=== PATIENT | female | born 1975 | race Hispanic/Latino ===

== ENCOUNTER 2016-11-18 12:55 | Emergency (ER) | payer BC, OTHER ==
[2016-11-18 12:56] VITALS: BMI 20.3
--- NOTE | 2016-11-18 13:33 | ED PDOC ---
Arrival/HPI <Nawaf Stapleton - Last Filed: 11/18/16 14:34> - General Historian: Patient - History of Present Illness Time/Duration: Prior to Arrival Symptom Onset: Sudden Symptom Course: Improving Context: Home <Keeley Marquez - Last Filed: 11/18/16 15:59> - General Chief Complaint: Chest Pain Time Seen by Provider: 11/18/16 13:16 - History of Present Illness Narrative History of Present Illness (Text): 11/18/16 13:43 41 yo female with PMH with endometriosis presented with right sided rib pain. Patient states she was going to take a step when she felt sharp pain with popping feeling. Initially pain was 10/10 but improved with rest. Patient states that movement and taking deep breaths makes the pain worse. Pain does not radiated. Patient also has right sided chest pain for the past few months. She describes that pain as burning worse when laying on her right side or with movement. Patient states she saw her PMD and had a CXR which was normal. She denies fever, chills, sob, abd pain. PMD: Dr. Ruiz (Keeley Marquez) Past Medical History - Provider Review Nursing Documentation Reviewed: Yes - Infectious Disease Hx of Infectious Diseases: None - Tetanus Immunization Tetanus Immunization: Unknown - Past Medical History Past Medical History: No Previous - Cardiac Hx Pacemaker: No - Pulmonary Hx Respiratory Disorders: No - Neurological Hx Neurological Disorder: No Hx Paralysis: No - HEENT Hx HEENT Disorder: No - Renal Hx Renal Disorder: No - Endocrine/Metabolic Hx Endocrine Disorders: Yes Other/Comment: pituitary tumor - Hematological/Oncological Hx Blood Disorders: No Hx Blood Transfusions: No - Integumentary Hx Dermatological Disorder: No - Musculoskeletal/Rheumatological Hx Musculoskeletal Disorders: No - Gastrointestinal Hx Gastrointestinal Disorders: Yes Hx Constipation: Yes Hx Gastroesophageal Reflux: Yes - Genitourinary/Gynecological Hx Genitourinary Disorders: Yes Other/Comment: Endometriosis, ovarian mass - Psychiatric Hx Depression: Yes Hx Substance Use: No - Past Surgical History Past Surgical History: No Previous - Surgical History Other/Comment: endometriosis; rhinoplasty, ovarian mass removed - Anesthesia Hx Anesthesia Reactions: No Hx Malignant Hyperthermia: No - Suicidal Assessment Feels Threatened In Home Enviroment: No <Keeley Marquez - Last Filed: 11/18/16 15:59> Family/Social History - Physician Review Nursing Documentation Reviewed: Yes Family/Social History: Neoplasm/Cancer (father- lung ca) Smoking Status: Current Some Days Smoker Hx Alcohol Use: No Hx Substance Use: No Hx Substance Use Treatment: No <Keeley Marquez - Last Filed: 11/18/16 15:59> Allergies/Home Meds <Nawaf Stapleton - Last Filed: 11/18/16 14:34> <Keeley Marquez - Last Filed: 11/18/16 15:59> Allergies/Adverse Reactions: Allergies morphine Allergy (Verified 11/18/16 13:16) SHORTNESS OF BREATH Home Medications: Home Meds Medication Instructions Recorded Confirmed Dexlansoprazole [Dexilant] 60 mg PO PRN PRN 08/11/15 11/18/16 Review of Systems - Review of Systems Constitutional: Normal. absent: Fatigue, Fevers Eyes: Normal. absent: Vision Changes ENT: Normal. absent: Hearing Changes, Sore Throat, Rhinorrhea, Sinus Congestion Respiratory: Normal. absent: SOB, Cough, Wheezing Cardiovascular: Normal, Chest Pain. absent: Palpitations, Edema, Calf Pain, Syncope Gastrointestinal: Normal. absent: Abdominal Pain, Constipation, Diarrhea, Nausea, Vomiting Genitourinary Female: Normal. absent: Dysuria, Frequency, Hematuria Musculoskeletal: Back Pain, Myalgias. absent: Arthralgias, Joint Swelling Skin: Normal. absent: Rash, Laceration, Ulcer Neurological: Normal. absent: Headache, Dizziness Endocrine: Normal. absent: Diaphoresis Hemo/Lymphatic: Normal. absent: Easy Bleeding, Easy Bruising Psychiatric: Anxiety. absent: Depression <Keeley Marquez - Last Filed: 11/18/16 15:59> Physical Exam - Systems Exam Head: Present: Atraumatic, Normocephalic Pupils: Present: PERRL. No: Non-Reactive, Pinpoint Extroacular Muscles: Present: EOMI. No: Gaze Palsy, Entrapment Conjunctiva: Present: Normal Mouth: Present: Moist Mucous Membranes Neck: Present: Normal Range of Motion. No: MIDLINE TENDERNESS Respiratory/Chest: Present: Clear to Auscultation, Good Air Exchange, Tender to Palpation (right side). No: Respiratory Distress, Accessory Muscle Use, Wheezes , Rales, Rhonchi, Tachypneic Cardiovascular: Present: Regular Rate and Rhythm, Normal S1, S2. No: Murmurs, Tachycardic, Bradycardic Abdomen: Present: Normal Bowel Sounds. No: Tenderness, Distention, Peritoneal Signs Back: Present: Normal Inspection, Other (tenderness with palpitation of right side lower ribs). No: CVA Tenderness, Midline Tenderness Upper Extremity: Present: Normal Inspection, NORMAL PULSES. No: Cyanosis, Edema , Tenderness, Swelling Lower Extremity: Present: Normal Inspection, NORMAL PULSES. No: Edema, CALF TENDERNESS Neurological: Present: GCS=15, CN II-XII Intact, Speech Normal Skin: Present: Warm, Dry, Normal Color. No: Rashes Psychiatric: Present: Alert, Oriented x 3, Normal Insight, Normal Concentration , Anxious <Keeley Marquez - Last Filed: 11/18/16 15:59> Vital Signs Temp Pulse Resp BP Pulse Ox 11/18/16 15:00 98 F 76 18 118/73 98 11/18/16 13:20 98.1 F 70 18 120/79 99 Medical Decision Making <Nawaf Stapleton - Last Filed: 11/18/16 14:34> <Keeley Marquez - Last Filed: 11/18/16 15:59> ED Course and Treatment: Patient seen and examined with resident. Came up with treatment and disposition plan with resident. The patient is a 41 year old female who presents to the emergency department for evaluation of right sided rib pain. Additional HPI details as noted by resident. Physical examination the patient has no acute findings. Rib x-ray ordered to rule out fracture vs sprain. Patient given Flexeril and Toradol for discomfort. (Nawaf Stapleton) 11/18/16 13:39 impression: 41 yo female with PMH of endometriosis present with pain right sided rib pain. differential diagnoses includes but not limited to: - muscle strain Plan: - rib, AP xray - pain management - EKG 11/18/16 15:25 - Xray of right rib and PA chest was unremarkable, no right rib fracture. EKG was NSR, no ST changes. Patient states that she is feeling better. Discharge plan was discussed with patient, she is to follow up with PMD in 1-2 days. ( Keeley Marquez) - RAD Interpretation Radiology Orders: 11/18/16 13:51 RIBS RIGHT & PA CHEST [RAD] Stat - EKG Interpretation EKG Interpretation (Text): 11/18/16 14:30 Rate 62 bpm NSR, no ST changes (Keeley Marquez) - Medication Orders Current Medication Orders: Discontinued Medications Cyclobenzaprine HCl (Flexeril) 10 mg PO STAT STA Stop: 11/18/16 13:51 Last Admin: 11/18/16 14:22 Dose: 10 mg Ketorolac Tromethamine (Toradol) 60 mg IM STAT STA Stop: 11/18/16 13:53 Last Admin: 11/18/16 14:22 Dose: 60 mg - PA / DIRECTOR OF RESIDENTIAL SERVICES / Resident Statement MD/DO has reviewed & agrees with the documentation as recorded. MD/DO has examined the patient and agrees with the treatment plan. - Scribe Statement The provider has reviewed the documentation as recorded by the Scribe <Nawaf Stapleton - Last Filed: 11/18/16 14:34> <Keeley Marquez - Last Filed: 11/18/16 15:59> - Scribe Statement Peyman Carreno Provider Scribe Attestation: All medical record entries made by the Scribe were at my direction and personally dictated by me. I have reviewed the chart and agree that the record accurately reflects my personal performance of the history, physical exam, medical decision making, and the department course for this patient. I have also personally directed, reviewed, and agree with the discharge instructions and disposition. (Nawaf Stapleton) Disposition/Present on Arrival <Nawaf Stapleton - Last Filed: 11/18/16 14:34> - Present on Arrival Any Indicators Present on Arrival: No History of DVT/PE: No History of Uncontrolled Diabetes: No Urinary Catheter: No History of Decub. Ulcer: No History Surgical Site Infection Following: None - Disposition Have Diagnosis and Disposition been Completed?: Yes Disposition Time: 03:20 Patient Plan: Discharge <Keeley Marquez - Last Filed: 11/18/16 15:59> - Disposition Diagnosis: Muscle spasm Disposition: HOME/ ROUTINE Patient Problems: Current Active Problems Problem Status Onset Muscle spasm Acute Condition: GOOD Additional Instructions: Samra Maria, thank you for letting us take care of you today. Your provider was Dr. Marquez and Dr. Stapleton. You were treated for muscle spasm. The emergency medical care you received today was directed at your acute symptoms. If you were prescribed any medication, please fill it and take as directed. It may take several days for your symptoms to resolve. Return to the Emergency Department if your symptoms worsen, do not improve, or if you have any other problems. Please contact your doctor or call one of the physicians/clinics you have been referred to that are listed on the Patient Visit Information form that is included in your discharge packet. Bring any paperwork you were given at discharge with you along with any medications you are taking to your follow up visit. Our treatment cannot replace ongoing medical care by a primary care provider (PCP) outside of the emergency department. Thank you for allowing the [facility] team to be part of your care today. Referrals: Deyvi Ruiz MD [Primary Care Provider] - Follow up with primary Forms: WORK NOTE
--- NOTE | 2016-11-18 15:21 | RAD ---
PROCEDURE: Radiographs of the Chest and Right Ribs. HISTORY: right sided rib pain COMPARISON: None available. TECHNIQUE: Frontal radiograph of the chest and multiple oblique radiographs of the right ribs were obtained. FINDINGS: RIGHT RIBS: No fracture or focal lesion visualized. LUNGS: Clear. PLEURA: No pneumothorax or pleural fluid. CARDIOVASCULAR: Normal sized heart. No pulmonary vascular congestion. OTHER FINDINGS: None. IMPRESSION: Unremarkable radiographs of the chest and right ribs. No right rib fracture.
[2016-11-18 15:51] VITALS: BP 118/73; PULSE 76; RESP 18; TEMP 98; O2SAT 98
--- NOTE | 2016-11-19 23:29 | CARD ---
APPROVED REPORT EKG Measurement Heart [id number] <Conclusion> Normal sinus rhythm Normal ECG
== END 2016-11-18 15:53 | disposition home or self-care (01) ==
LOC: ED 12:55
DX: M62.838 Other muscle spasm (principal)
CPT/HCPCS: 71101; 93005; 96372; 99283; J1885

== ENCOUNTER 2017-01-22 12:41 | Emergency (ER) | payer BC ==
[2017-01-22 12:42] VITALS: BMI 20.3
[2017-01-22 13:16] VITALS: TEMP 98.2
--- NOTE | 2017-01-22 13:42 | ED PDOC ---
Arrival/HPI - General Chief Complaint: Weakness/Neurological Deficit Time Seen by Provider: 01/22/17 13:27 Historian: Patient - History of Present Illness Narrative History of Present Illness (Text): 01/22/17 13:36 Candace Cabrales is a 41 year old female who presents to the emergency department for evaluation of stress and "not feeling well." States she has been under a lot of work related stress and started to feel "disoriented and oozy." States she has a history of anxiety and was on Xanax a year ago. Denies feeling depressed, suicidal and homicidal ideation. Denies any somatic complaints. pt states "she wants to make sure nothing else is going on ". does not request anxiolytic in er, states she "already feels better". 01/22/17 14:43 Time/Duration: Prior to Arrival Symptom Onset: Gradual Symptom Course: Improving Severity Level: Mild Activities at Onset: Light Context: Work Past Medical History - Provider Review Nursing Documentation Reviewed: Yes - Infectious Disease Hx of Infectious Diseases: None - Tetanus Immunization Tetanus Immunization: Unknown - Past Medical History Past Medical History: No Previous - Cardiac Hx Pacemaker: No - Pulmonary Hx Respiratory Disorders: No - Neurological Hx Neurological Disorder: No Hx Paralysis: No - HEENT Hx HEENT Disorder: No - Renal Hx Renal Disorder: No - Endocrine/Metabolic Hx Endocrine Disorders: Yes Other/Comment: pituitary tumor - Hematological/Oncological Hx Blood Disorders: No Hx Anemia: Yes Hx Blood Transfusions: No - Integumentary Hx Dermatological Disorder: No - Musculoskeletal/Rheumatological Hx Musculoskeletal Disorders: No - Gastrointestinal Hx Gastrointestinal Disorders: Yes Hx Constipation: Yes Hx Gastroesophageal Reflux: Yes - Genitourinary/Gynecological Hx Genitourinary Disorders: Yes Other/Comment: Endometriosis, ovarian mass - Psychiatric Hx Depression: Yes Hx Substance Use: No - Past Surgical History Past Surgical History: No Previous - Surgical History Other/Comment: endometriosis; rhinoplasty, ovarian mass removed - Anesthesia Hx Anesthesia: Yes Hx Anesthesia Reactions: No Hx Malignant Hyperthermia: No - Suicidal Assessment Feels Threatened In Home Enviroment: No Family/Social History - Physician Review Nursing Documentation Reviewed: Yes Family/Social History: No Known Family HX Smoking Status: Current Some Days Smoker Hx Alcohol Use: No Hx Substance Use: No Hx Substance Use Treatment: No Allergies/Home Meds Allergies/Adverse Reactions: Allergies morphine Allergy (Verified 11/18/16 13:16) SHORTNESS OF BREATH Home Medications: Home Meds Medication Instructions Recorded Confirmed Dexlansoprazole [Dexilant] 60 mg PO PRN PRN 08/11/15 01/22/17 Review of Systems - Physician Review All systems were reviewed & negative as marked: Yes - Review of Systems Constitutional: absent: Fatigue, Fevers Respiratory: Normal. absent: SOB, Cough, Sputum Cardiovascular: Normal. absent: Chest Pain, Palpitations Neurological: Normal. absent: Headache, Focal Weakness Psychiatric: Anxiety. absent: Depression, Suicidal Ideation Physical Exam Vital Signs Reviewed: Yes Vital Signs Temp Pulse Resp BP Pulse Ox 01/22/17 15:06 68 17 120/80 99 01/22/17 15:04 71 18 116/75 98 01/22/17 14:19 75 18 118/71 98 01/22/17 13:16 98.2 F 77 18 120/75 98 Temperature: Afebrile Blood Pressure: Normal Pulse: Regular Respiratory Rate: Normal Appearance: Positive for: Well-Appearing, Non-Toxic, Comfortable Pain Distress: None Mental Status: Positive for: Alert and Oriented X 3 - Systems Exam Head: Present: Atraumatic, Normocephalic Pupils: Present: PERRL Conjunctiva: Present: Normal Mouth: Present: Moist Mucous Membranes Respiratory/Chest: Present: Clear to Auscultation, Good Air Exchange. No: Respiratory Distress, Accessory Muscle Use Cardiovascular: Present: Regular Rate and Rhythm, Normal S1, S2. No: Murmurs Abdomen: Present: Normal Bowel Sounds. No: Tenderness, Distention, Peritoneal Signs Upper Extremity: Present: Normal Inspection. No: Cyanosis, Edema Lower Extremity: Present: Normal Inspection. No: Edema Neurological: Present: GCS=15, CN II-XII Intact, Speech Normal Skin: Present: Warm, Dry, Normal Color. No: Rashes Psychiatric: Present: Alert, Oriented x 3, Anxious Medical Decision Making ED Course and Treatment: 01/22/17 13:45 Impression: A 41 year old female who presents to the emergency department complaining of feeling anxious and disoriented. Plan: -- EKG -- Labs, cardiac enzymes -- Urinalysis -- Reassess and disposition Progress Notes: 01/22/17 13:47 01/22/17 14:44 pt noted to be sleeping in nad. no si/hi, hallucinations. pt does now wish to speak to pes worker. pt asking for d/c. as pt not si/hi/hallcinating, pt states she will see her own pychiatrist. return precautions advised - Lab Interpretations Lab Results: 01/22/17 14:06 01/22/17 14:06 Lab Results 01/22/17 14:06: Sodium 139, Potassium 4.2, Chloride 104, Carbon Dioxide 29, Anion Gap 10, BUN 13, Creatinine 0.7, Est GFR ( Amer) > 60, Est GFR (Non- Af Amer) > 60, Random Glucose 77, Calcium 9.0, Magnesium 1.7, Total Bilirubin 0.7, AST 19, ALT 31, Alkaline Phosphatase 45, Lactate Dehydrogenase 292 L, Total Creatine Kinase 45, Troponin I < 0.01, Total Protein 6.4, Albumin 4.0, Globulin 2.4, Albumin/Globulin Ratio 1.7 01/22/17 14:06: Urine Color Yellow, Urine Appearance Clear, Urine pH 6.0, Ur Specific [place] 1.025, Urine Protein Negative, Urine Glucose (UA) Negative, Urine Ketones Negative, Urine Blood Negative, Urine Nitrate Negative, Urine Bilirubin Negative, Urine Urobilinogen 0.2, Ur Leukocyte Esterase Negative 01/22/17 14:06: PT 11.4, INR 1.06, APTT 28.6 01/22/17 14:06: WBC 4.6, RBC 3.88, Hgb 12.2, Hct 36.1, MCV 93.0, MCH 31.4, MCHC 33.8, RDW 12.7, Plt Count 199, MPV 9.8, Gran % 59.2, Lymph % (Auto) 31.4, [place] % (Auto) 8.4 H, Eos % (Auto) 0.6 L, Baso % (Auto) 0.4, Gran # 2.73, Lymph # 1.5 , [place] # 0.4, Eos # 0.0, Baso # 0.02 - Scribe Statement The provider has reviewed the documentation as recorded by the Rachid Hernandez Provider Attestation: Christine Hernandez Disposition/Present on Arrival - Present on Arrival Any Indicators Present on Arrival: No History of DVT/PE: No History of Uncontrolled Diabetes: No Urinary Catheter: No History of Decub. Ulcer: No History Surgical Site Infection Following: None - Disposition Have Diagnosis and Disposition been Completed?: Yes Diagnosis: Weakness Disposition: HOME/ ROUTINE Disposition Time: 14:45 Condition: STABLE Discharge Instructions (ExitCare): Weakness (ED), Anxiety (ED) Additional Instructions: please follow up with your doctor. return to er with worsening symptoms or concerns. Referrals: Deyvi Ruiz MD [Primary Care Provider] - Follow up with primary Kavya Hoffman [Outside] - Follow up with primary [facility] [Outside] - Follow up with primary Forms: UrsulaNavut Diaz ([place]), WORK NOTE
[2017-01-22 14:20] LABS: ALB/GLOB RATIO 1.7 (1.1-1.8); ALT/SGPT 31 U/L (7-56); AST/SGOT 19 U/L (15-39); BLOOD UREA NITROGEN 13 mg/dL (7-21); GFR AFRICAN-AMERICAN > 60; GFR NON-AFRICAN AMERICAN > 60; MAGNESIUM 1.7 mg/dL (1.7-2.2)
[2017-01-22 14:23] LABS: BASO # 0.02 K/mm3 (0.0-2.0); BASO % 0.4 % (0.0-3.0); EOS % 0.6 % (1.5-5.0); GRAN # 2.73 (1.4-6.5); GRAN % 59.2 % (50.0-68.0); HEMOGLOBIN 12.2 g/dL (12.0-16.0); LYMPH # 1.5 (1.2-3.4); LYMPH % 31.4 % (22.0-35.0); MEAN CORPUSCULAR HEMOGLOBIN 31.4 pg (25.0-35.0); MEAN CORPUSCULAR HGB CONC 33.8 g/dl (31.0-37.0); MEAN PLATELET VOLUME 9.8 fl (7.0-11.0); MONO # 0.4 (0.1-0.6); MONO % 8.4 % (1.0-6.0); RBC 3.88 10^6/uL (3.5-6.1); RED CELL DISTRIBUTION WIDTH 12.7 % (11.5-14.5); URINE BILIRUBIN NEGATIVE (NEGATIVE); URINE BLOOD NEGATIVE (NEGATIVE); URINE GLUCOSE (UA) NEGATIVE (NEGATIVE); URINE LEUKOCYTE ESTERASE NEGATIVE Leu/uL (NEGATIVE); URINE NITRATE NEGATIVE (NEGATIVE); URINE PROTEIN NEGATIVE mg/dL (<30 mg/dL); URINE UROBILINOGEN 0.2 E.U./dL (<1 E.U./dL); WHITE BLOOD COUNT 4.6 10^3/ul (4.5-11.0)
[2017-01-22 14:27] LABS: URINE APPEARANCE CLEAR (CLEAR); URINE COLOR YELLOW (YELLOW)
[2017-01-22 14:29] LABS: INR 1.06 (0.93-1.08); PARTIAL THROMBOPLASTIN TIME 28.6 Seconds (23.7-30.8); PROTHROMBIN TIME 11.4 Seconds (9.9-11.8)
[2017-01-22 14:34] LABS: TROPONIN I < 0.01 ng/mL
[2017-01-22 15:06] VITALS: BP 120/80; PULSE 68; RESP 17; O2SAT 99
--- NOTE | 2017-01-22 16:25 | CARD ---
APPROVED REPORT EKG Measurement Heart [id number] <Conclusion> Sinus bradycardia Otherwise normal ECG
== END 2017-01-22 15:10 | disposition home or self-care (01) ==
LOC: ED 12:41
DX: R53.1 Weakness (principal)

== ENCOUNTER 2017-06-21 07:13 | Day surgery (SDC) | payer BC ==
[2017-06-21 07:41] VITALS: RESP 16; TEMP 98.2; O2SAT 99
[2017-06-21] MEDS ORDERED: Propofol 10 mg/ml Inj (20 ML) ONE (07:51)
[2017-06-21 07:58] LABS: INR 1.05 (0.93-1.08); PARTIAL THROMBOPLASTIN TIME 29.5 Seconds (25.1-36.5); PROTHROMBIN TIME 12.1 SECONDS (9.4-12.5)
[2017-06-21 08:01] LABS: BASO # 0.02 K/mm3 (0.0-2.0); BASO % 0.4 % (0.0-3.0); EOS # 0.1 (0.0-0.7); EOS % 2.2 % (1.5-5.0); GRAN # 1.85 (1.4-6.5); HEMOGLOBIN 12.9 g/dL (12.0-16.0); LYMPH # 2.1 (1.2-3.4); MEAN CELL VOLUME 93.9 fl (80.0-105.0); MEAN CORPUSCULAR HEMOGLOBIN 31.5 pg (25.0-35.0); MEAN CORPUSCULAR HGB CONC 33.6 g/dl (31.0-37.0); MEAN PLATELET VOLUME 10.4 fl (7.0-11.0); MONO # 0.5 (0.1-0.6); MONO % 10.4 % (1.0-6.0); RBC 4.09 10^6/uL (3.5-6.1); RED CELL DISTRIBUTION WIDTH 12.5 % (11.5-14.5); WHITE BLOOD COUNT 4.5 10^3/ul (4.5-11.0)
[2017-06-21] MEDS ORDERED: Sodium Chloride 0.9% 1,000 ML IV SCH (08:30)
[2017-06-21 09:47] VITALS: BP 100/61; PULSE 59
== END 2017-06-21 10:06 | disposition home or self-care (01) ==
LOC: ENDO 07:13
PROVIDERS: ATTEND Internal Medicine Gastroenterology
DX: K21.0 Gastro-esophageal reflux disease with esophagitis (principal); K44.9 Diaphragmatic hernia without obstruction or gangrene; K29.70 Gastritis, unspecified, without bleeding; K29.80 Duodenitis without bleeding; T18.2XXA Foreign body in stomach, initial encounter
CPT/HCPCS: 36415; 43239; 85025; 85610; 85730; 88305; 88342; J2704; J7040 ×2

== ENCOUNTER 2017-10-06 06:27 | Emergency (ER) | payer BC ==
[2017-10-06 06:27] VITALS: BMI 20.3
[2017-10-06 07:10] VITALS: BP 119/65; PULSE 57; RESP 18; TEMP 98.3; O2SAT 96
--- NOTE | 2017-10-06 07:46 | ED PDOC ---
Arrival/HPI - General Chief Complaint: Palpitations Time Seen by Provider: 10/06/17 07:45 Historian: Patient - History of Present Illness Narrative History of Present Illness (Text): 10/06/17 07:50 Patient is a 42 year old female whose medical history includes depression, peptic ulcers, and endometriosis, who presents to the Emergency department complaining of insomnia after taking Lexapro last night at approximately 21:00. Patient reports that she has started taking Lexapro for the past 5 days in the morning with mild palpitations and jitteriness. However, after taking Lexapro last night her palpitations have become more noticeable and being unable to sleep. Patient denies drinking any EtOH but admits to smoking. Of note since her depression started patient has lost 13-14lb. She denies any suicidal or homicidal ideation. Patient plans to follow up with her psychiatrist today or tomorrow. PMD:Dr.Lisa Norton Time/Duration: Other (Last night) Symptom Course: Unchanged Activities at Onset: Rest Context: Home Past Medical History - Provider Review Nursing Documentation Reviewed: Yes - Infectious Disease Hx of Infectious Diseases: None - Tetanus Immunization Tetanus Immunization: Unknown - Past Medical History Past Medical History: No Previous - Cardiac Hx Pacemaker: No - Pulmonary Hx Respiratory Disorders: No - Neurological Hx Paralysis: No - HEENT Hx HEENT Disorder: No - Renal Hx Renal Disorder: No - Endocrine/Metabolic Hx Endocrine Disorders: Yes Other/Comment: pituitary tumor - Hematological/Oncological Hx Blood Transfusions: No Hx Blood Transfusion Reaction: No - Integumentary Hx Dermatological Disorder: No - Musculoskeletal/Rheumatological Hx Musculoskeletal Disorders: No - Gastrointestinal Hx Gastrointestinal Disorders: Yes Hx Constipation: Yes Hx Gastroesophageal Reflux: Yes - Genitourinary/Gynecological Hx Genitourinary Disorders: Yes Other/Comment: Endometriosis, ovarian mass - Psychiatric Hx Emotional Abuse: No Hx Physical Abuse: No Hx Substance Use: No - Past Surgical History Past Surgical History: No Previous - Surgical History Other/Comment: endometriosis; rhinoplasty, ovarian mass removed - Anesthesia Hx Anesthesia Reactions: No Hx Malignant Hyperthermia: No - Suicidal Assessment Feels Threatened In Home Enviroment: No Family/Social History - Physician Review Nursing Documentation Reviewed: Yes Family/Social History: No Known Family HX Smoking Status: Current Some Days Smoker Hx Alcohol Use: No Hx Substance Use: No Hx Substance Use Treatment: No Allergies/Home Meds Allergies/Adverse Reactions: Allergies morphine Allergy (Verified 11/18/16 13:16) SHORTNESS OF BREATH Home Medications: Home Meds Medication Instructions Recorded Confirmed Dexlansoprazole [Dexilant] 60 mg PO PRN PRN 08/11/15 06/21/17 Famotidine/Ca Carb/Mag Hydrox 1 each PO DAILY 06/21/17 06/21/17 [Pepcid Complete Tablet Chew] Review of Systems - Physician Review All systems were reviewed & negative as marked: Yes - Review of Systems Constitutional: absent: Fevers Psychiatric: absent: Suicidal Ideation Physical Exam - Physical Exam Narrative Physical Exam (Text): 10/06/17 07:50 Constitutional: No acute distress. Head: Normocephalic. Atraumatic. Eyes: PERRL. ENT: Moist mucous membranes. Neck: Supple. Cardiovascular: Regular rate. Chest: No tenderness. Respiratory: Clear to auscultation bilaterally. GI: Soft. Nontender. Nondistended. Back: No CVA tenderness. Musculoskeletal: No tenderness or swelling of extremities. Skin: No rash. Neurologic: Alert, no focal deficit. Vital Signs Temp Pulse Resp BP Pulse Ox 10/06/17 07:09 98.3 F 57 L 18 119/65 96 Temperature: Afebrile Blood Pressure: Normal Pulse: Bradycardic Respiratory Rate: Normal Pain Distress: None Mental Status: Positive for: Alert and Oriented X 3 Medical Decision Making ED Course and Treatment: 10/06/17 07:48 Impression: Patient is a 42 year old female who is experiencing insomnia secondary to palpitations. Differential Diagnosis included but are not limited to: Medication side effect vs palpitation, r/o arrhythmia. Plan: --EKG -- Reassess and disposition Prior Visits: Notes and results from previous visits were reviewed. Progress Notes: 10/06/17 EKG shows NSR at [address]/T wave changes. Interpreted by me. 10/06/17 7:52 Reevaluation: On reevaluation the patient feels better and is in no acute distress. I have discussed the results and plan with the patient, who expresses understanding. Patient given the opportunity to ask question, all questions were answered and there is agreement with the plan to discharge the patient home. Patient is stable for discharge. Patient was instructed to follow up with physician/clinic in 1-2 days or return if symptoms persist/worsen or new concerning symptoms arise. - EKG Interpretation Interpreted by ED Physician: Yes Type: 12 lead EKG - Scribe Statement The provider has reviewed the documentation as recorded by the Scribe Emiliano Leon Provider Scribe Attestation: All medical record entries made by the Scribe were at my direction and personally dictated by me. I have reviewed the chart and agree that the record accurately reflects my personal performance of the history, physical exam, medical decision making, and the department course for this patient. I have also personally directed, reviewed, and agree with the discharge instructions and disposition. Disposition/Present on Arrival - Present on Arrival Any Indicators Present on Arrival: No History of DVT/PE: No History of Uncontrolled Diabetes: No Urinary Catheter: No History of Decub. Ulcer: No History Surgical Site Infection Following: None - Disposition Have Diagnosis and Disposition been Completed?: Yes Diagnosis: Medication side effect Disposition: HOME/ ROUTINE Disposition Time: 07:52 Patient Plan: Discharge Condition: STABLE Discharge Instructions (ExitCare): Side Effects From Medicines Referrals: Carla Moralez MD [Primary Care Provider] - Follow up with primary Forms: [employer] ([place])
--- NOTE | 2017-10-06 19:19 | CARD ---
APPROVED REPORT EKG Measurement Heart [id number] <Conclusion> Sinus bradycardia with sinus arrhythmia Otherwise normal ECG
== END 2017-10-06 08:20 | disposition home or self-care (01) ==
LOC: ED 06:27
DX: R00.2 Palpitations (principal); T43.225A Adverse effect of selective serotonin reuptake inhibitors, initial encounter; Y92.009 Unspecified place in unspecified non-institutional (private) residence as the place of occurrence of the external cause; F17.200 Nicotine dependence, unspecified, uncomplicated

== ENCOUNTER 2018-07-06 16:55 | Emergency (ER) | payer BC ==
[2018-07-06 16:56] VITALS: BMI 20.3
[2018-07-06 17:14] VITALS: RESP 18; TEMP 98.1
--- NOTE | 2018-07-06 18:27 | ED PDOC ---
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 States she slipped on ice, fell and hit the back on her head on the ground. alleged LOC. denies focal weakness, nausea, vomiting, back pain, dizziness, any other complaint. Past Medical History - Provider Review Nursing Documentation Reviewed: Yes - Infectious Disease Hx of Infectious Diseases: None - Tetanus Immunization Tetanus Immunization: Unknown - Reproductive Currently : No - Past Medical History Past Medical History: No Previous - Cardiac Hx Cardiac Disorders: No - Pulmonary Hx Respiratory Disorders: No - Neurological Hx Neurological Disorder: No - HEENT Hx HEENT Disorder: No - Renal Hx Renal Disorder: No - Endocrine/Metabolic Hx Endocrine Disorders: No - Hematological/Oncological Hx Blood Disorders: No - Integumentary Hx Dermatological Disorder: No - Musculoskeletal/Rheumatological Hx Musculoskeletal Disorders: No - Gastrointestinal Hx Gastrointestinal Disorders: Yes Hx Constipation: Yes Hx Gastroesophageal Reflux: Yes - Genitourinary/Gynecological Hx Genitourinary Disorders: Yes Other/Comment: Endometriosis, ovarian mass - Psychiatric Hx Psychophysiologic Disorder: No Hx Substance Use: No - Past Surgical History Past Surgical History: No Previous - Surgical History Other/Comment: endrometriosis; rhinoplasty, ovarian mass removed - Anesthesia Hx Anesthesia Reactions: No Hx Malignant Hyperthermia: No - Suicidal Assessment Feels Threatened In Home Enviroment: No Family/Social History - Physician Review Nursing Documentation Reviewed: Yes Family/Social History: Unknown Family HX Smoking Status: Current Some Days Smoker Hx Alcohol Use: No Hx Substance Use: No Hx Substance Use Treatment: No Allergies/Home Meds Allergies/Adverse Reactions: Allergies morphine Allergy (Verified 07/06/18 17:12) SHORTNESS OF BREATH Home Medications: Home Meds Medication Instructions Recorded Confirmed Dexlansoprazole [Dexilant] 60 mg PO PRN PRN 08/11/15 07/06/18 Escitalopram [Lexapro] 20 mg PO DAILY 07/06/18 07/06/18 Review of Systems - Physician Review All systems were reviewed & negative as marked: Yes - Review of Systems Constitutional: Normal Eyes: Normal ENT: Normal Respiratory: Normal Cardiovascular: Normal Gastrointestinal: Normal Genitourinary Female: Normal Musculoskeletal: Neck Pain Skin: Normal Neurological: Headache. absent: Dizziness, Focal Weakness, Gait Changes Endocrine: Normal Hemo/Lymphatic: Normal Psychiatric: Normal Physical Exam Vital Signs Reviewed: Yes Vital Signs Temp Pulse Resp BP Pulse Ox 07/06/18 17:12 98.1 F 65 18 123/78 99 Temperature: Afebrile Blood Pressure: Normal Pulse: Regular Respiratory Rate: Normal Appearance: Positive for: Well-Appearing, Non-Toxic, Comfortable Pain Distress: None Mental Status: Positive for: Alert and Oriented X 3 - Systems Exam Head: Present: Atraumatic, Normocephalic Pupils: Present: PERRL Extroacular Muscles: Present: EOMI Conjunctiva: Present: Normal Mouth: Present: Moist Mucous Membranes Neck: Present: MIDLINE TENDERNESS. No: Paraspinal Tenderness Respiratory/Chest: Present: Clear to Auscultation, Good Air Exchange. No: Respiratory Distress, Accessory Muscle Use Cardiovascular: Present: Regular Rate and Rhythm, Normal S1, S2. No: Murmurs Abdomen: No: Tenderness, Distention, Peritoneal Signs Back: Present: Normal Inspection Upper Extremity: Present: Normal Inspection. No: Cyanosis, Edema Lower Extremity: Present: Normal Inspection. No: Edema Neurological: Present: GCS=15, CN II-XII Intact, Speech Normal, Motor Func Grossly Intact, Normal Sensory Function, Normal Cerebellar Funct, Gait Normal, Memory Normal, Other (No focal neurological deficit) Skin: Present: Warm, Dry, Normal Color. No: Rashes Psychiatric: Present: Alert, Oriented x 3, Normal Insight, Normal Concentration Medical Decision Making ED Course and Treatment: 07/06/18 20:07 PT presented to emergency department for stated history. 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 CT of head reviewed by radiologist, shows: Dictated by: Emiliano Campbell MD Dictated Date/Time: 07/06/18 19:27 IMPRESSION: No acute intracranial abnormality. 07/06/18 20:18 Wrist brace placed - RAD Interpretation Radiology Orders: 07/06/18 17:40 HEAD W/O CONTRAST [CT] Stat 07/06/18 17:41 CERVICAL SPINE W/O CONTRAST [CT] Stat Disposition/Present on Arrival - Present on Arrival Any Indicators Present on Arrival: No History of DVT/PE: No History of Uncontrolled Diabetes: No Urinary Catheter: No History of Decub. Ulcer: No History Surgical Site Infection Following: None - Disposition Have Diagnosis and Disposition been Completed?: Yes Diagnosis: Cervical sprain, Headache, Wrist pain Disposition: HOME/ ROUTINE Disposition Time: 20:05 Patient Plan: Discharge Patient Problems: Current Active Problems Problem Status Onset Cervical sprain Acute Headache Acute Wrist pain Acute Condition: STABLE Discharge Instructions (ExitCare): Headache, Adult, Cervical Muscle Strain (DC) Additional Instructions: Follow up with your doctor/orthopedist Return to emergency department for any new or worsening symptoms Prescriptions: Cyclobenzaprine [Cyclobenzaprine HCl] 10 mg PO BID #10 tab Ibuprofen [Motrin Tab] 600 mg PO Q6 #15 tab Referrals: Teddy Rede III, MD [Medical Doctor] - Follow up with primary Forms: [employer] (Angolan)
[2018-07-06 20:21] VITALS: BP 115/63; PULSE 67; O2SAT 100
--- NOTE | 2018-07-07 08:25 | CT ---
Date of service: 07/06/2018 PROCEDURE: CT HEAD WITHOUT CONTRAST. HISTORY: s/p trauma COMPARISON: None available. TECHNIQUE: Axial computed tomography images were obtained through the head/brain without intravenous contrast. Radiation dose: Total exam DLP = 763.85 mGy-cm. This CT exam was performed using one or more of the following dose reduction techniques: Automated exposure control, adjustment of the mA and/or kV according to patient size, and/or use of iterative reconstruction technique. FINDINGS: HEMORRHAGE: No intracranial hemorrhage. BRAIN: No mass effect or edema. No atrophy or chronic microvascular ischemic changes. VENTRICLES: Unremarkable. No hydrocephalus. CALVARIUM: Unremarkable. PARANASAL SINUSES: Unremarkable as visualized. No significant inflammatory changes. MASTOID AIR CELLS: Unremarkable as visualized. No inflammatory changes. OTHER FINDINGS: None. IMPRESSION: Normal CT of the Head. No intracranial mass, hemorrhage or evidence of acute infarct. The preliminary findings for this examination were reported by [facility] at time. There is concurrence of this report with the preliminary findings.
--- NOTE | 2018-07-07 08:29 | CT ---
Date of service: 07/06/2018 PROCEDURE: CT Cervical Spine without contrast HISTORY: neck pain s/p trauma COMPARISON: None available. TECHNIQUE: Axial computed tomography images were obtained of the cervical spine without the use of intravenous contrast. Coronal and sagittal reformatted images were created and reviewed. Radiation dose: Total exam DLP = 377.3 mGy-cm. This CT exam was performed using one or more of the following dose reduction techniques: Automated exposure control, adjustment of the mA and/or kV according to patient size, and/or use of iterative reconstruction technique. FINDINGS: VERTEBRAE: Vertebral bodies are maintained in height. The atlantoaxial articulation and odontoid process are intact. There is mild straightening of the normal lordotic curvature indicating possible muscular spasm. DISCS/SPINAL CANAL/NEURAL FORAMINA: No significant central canal or neural foraminal stenosis. Discs heights are grossly preserved. PARASPINAL SOFT TISSUES: Unremarkable. OTHER FINDINGS: None. IMPRESSION: No fracture/dislocation. Possible muscular spasm. The preliminary findings for this examination were reported by [facility] at 7:34 p.m. on 07/06/2018. There is concurrence of this report with the preliminary findings.
--- NOTE | 2018-07-07 08:37 | RAD ---
Date of service: 07/06/2018 PROCEDURE: Left Wrist Radiographs. HISTORY: left wrist pain COMPARISON: None. FINDINGS: BONES: Normal. No fracture. JOINTS: Normal. No dislocation. SOFT TISSUES: Normal. OTHER FINDINGS: None. IMPRESSION: Normal left wrist radiographs.
== END 2018-07-06 20:15 | disposition home or self-care (01) ==
LOC: ED 16:55
DX: S13.4XXA Sprain of ligaments of cervical spine, initial encounter (principal); W00.0XXA Fall on same level due to ice and snow, initial encounter; M25.532 Pain in left wrist; R51 Headache

== ENCOUNTER 2018-09-30 12:53 | Emergency (ER) | payer BC ==
[2018-09-30 12:53] VITALS: BMI 20.3
--- NOTE | 2018-09-30 13:42 | ED PDOC ---
Arrival/HPI <Prince Lockwood - Last Filed: 09/30/18 14:38> - General Historian: Patient - History of Present Illness Narrative History of Present Illness (Text): 09/30/18 13:35 Patient is a 43yo F with PMH endometriosis and depression who presents to the ED with complaints of excessive sleep. She reports sleeping up to 20 hrs in a day for the past 4 months, which has caused her to miss work. She reports feeling fatigue, week, and with low energy. She claims she came in today because her boss was concerned and called EMS. Patient reports lack of interest in activities/hobbies, but denies changes in appetite or feeling like she wants to stay in bed all day. She denies fever, sweating, cold intolerance, chest pain, palpitations, nausea, vomiting, shortness of breath, abdominal pain, diarrhea, constipation. She reports intermittent tingling in random parts of her arms that resolves on its own. She also reports intermittent dizziness when getting up from sitting, as well as blurry vision. She says her eczema has been flaring which upsets her. She visits a therapist once a week, which she claims helps her. She denies any suicidal or homicidal ideations. <Marjorie Clayton - Last Filed: 09/30/18 18:03> - General Chief Complaint: Weakness/Neurological Deficit Time Seen by Provider: 09/30/18 13:08 Past Medical History - Infectious Disease Hx of Infectious Diseases: None - Tetanus Immunization Tetanus Immunization: Unknown - Past Medical History Past Medical History: No Previous - Cardiac Hx Cardiac Disorders: No - Pulmonary Hx Respiratory Disorders: No - Neurological Hx Neurological Disorder: No - HEENT Hx HEENT Disorder: No - Renal Hx Renal Disorder: No - Endocrine/Metabolic Hx Endocrine Disorders: No - Hematological/Oncological Hx Blood Disorders: No - Integumentary Hx Dermatological Disorder: No - Musculoskeletal/Rheumatological Hx Musculoskeletal Disorders: No - Gastrointestinal Hx Gastrointestinal Disorders: Yes Hx Constipation: Yes Hx Gastroesophageal Reflux: Yes - Genitourinary/Gynecological Hx Genitourinary Disorders: Yes Other/Comment: Endometriosis, ovarian mass - Psychiatric Hx Psychophysiologic Disorder: No Hx Substance Use: No - Past Surgical History Past Surgical History: No Previous - Surgical History Other/Comment: endrometriosis; rhinoplasty, ovarian mass removed - Anesthesia Hx Anesthesia Reactions: No Hx Malignant Hyperthermia: No - Suicidal Assessment Feels Threatened In Home Enviroment: No <Marjorie Clayton - Last Filed: 09/30/18 18:03> Family/Social History Family/Social History: Hypertension Smoking Status: Light Smoker < 10 Cigarettes Daily Hx Alcohol Use: No Hx Substance Use: No Hx Substance Use Treatment: No <Marjorie Clayton - Last Filed: 09/30/18 18:03> Allergies/Home Meds <Prince Lockwood - Last Filed: 09/30/18 14:38> <Marjorie Clayton - Last Filed: 09/30/18 18:03> Allergies/Adverse Reactions: Allergies morphine Allergy (Verified 09/30/18 13:01) SHORTNESS OF BREATH Home Medications: Home Meds Medication Instructions Recorded Confirmed Dexlansoprazole [Dexilant] 60 mg PO PRN PRN 08/11/15 07/06/18 Escitalopram [Lexapro] 20 mg PO DAILY 07/06/18 07/06/18 Review of Systems - Physician Review All systems were reviewed & negative as marked: Yes <Prince Lockwood - Last Filed: 09/30/18 14:38> - Review of Systems Constitutional: Fatigue. absent: Fevers Eyes: Vision Changes ENT: Normal Respiratory: Normal Cardiovascular: Normal Gastrointestinal: Normal Genitourinary Female: Normal. absent: Dysuria Musculoskeletal: Normal Skin: Normal Neurological: Dizziness Endocrine: Polyuria Hemo/Lymphatic: Normal Psychiatric: Depression. absent: Suicidal Ideation <Marjorie Clayton - Last Filed: 09/30/18 18:03> Physical Exam - Systems Exam Head: Present: Atraumatic, Normocephalic Pupils: Present: PERRL Extroacular Muscles: Present: EOMI Conjunctiva: Present: Normal Mouth: Present: Moist Mucous Membranes Neck: Present: Normal Range of Motion Respiratory/Chest: Present: Clear to Auscultation, Good Air Exchange. No: Respiratory Distress, Accessory Muscle Use Cardiovascular: Present: Regular Rate and Rhythm, Normal S1, S2. No: Murmurs Abdomen: Present: Normal Bowel Sounds. No: Tenderness, Distention, Peritoneal Signs Upper Extremity: Present: Normal Inspection, Normal ROM. No: Cyanosis, Edema Lower Extremity: Present: Normal Inspection. No: Edema, Deformity Neurological: Present: GCS=15, CN II-XII Intact, Speech Normal, Motor Func Grossly Intact, Normal Sensory Function Skin: Present: Warm, Rashes (erythematous plaques with fine scale in the periorbital region b/l), Normal Color. No: Dry Psychiatric: Present: Alert, Oriented x 3, Normal Concentration, Depressed Mood. No: Normal Insight, Suicidal Ideation, Homicidal Ideation <Marjorie Clayton - Last Filed: 09/30/18 18:03> Medical Decision Making - RAD Interpretation Radiology Orders: 09/30/18 13:42 CHEST PORTABLE [RAD] Stat <Prince Lockwood - Last Filed: 09/30/18 14:38> ED Course and Treatment: 09/30/18 13:49 - CBC, CMP, Thyroid studies - UA, UDS - serum alcohol - CXR - EKG - reassess 09/30/18 17:52 - CBC, CMP, thyroid studies without acute abnormalities - CXR no active disease - EKG sinus yanelis @53bpm - Patient not agreeable to PES at this time, prefers to be d/c home and follow up with her therapist. Had lengthy discussion regarding management of her symptoms and instructed patient to return with any worsening symptoms. Patient understood instructions and agreed. <Marjorie Clayton - Last Filed: 09/30/18 18:03> - PA / HUMAN RESOURCES TRAINING MANAGER / Resident Statement AZAEL has reviewed & agrees with the documentation as recorded. AZAEL has examined the patient and agrees with the treatment plan. <Prince Lockwood - Last Filed: 09/30/18 14:38> Disposition/Present on Arrival <Prince Lockwood - Last Filed: 09/30/18 14:38> - Present on Arrival Any Indicators Present on Arrival: No History of DVT/PE: No History of Uncontrolled Diabetes: No Urinary Catheter: No History of Decub. Ulcer: No History Surgical Site Infection Following: None - Disposition Have Diagnosis and Disposition been Completed?: Yes Disposition Time: 17:55 <Marjorie Clayton - Last Filed: 09/30/18 18:03> - Disposition Diagnosis: Depression, Hypersomnia Disposition: HOME/ ROUTINE Patient Problems: Current Active Problems Problem Status Onset Depression Acute Hypersomnia Acute Condition: STABLE Discharge Instructions (ExitCare): Depression, Adult (DC), Daytime Sleepiness Additional Instructions: Please follow up with your primary doctor within 2 days. Please follow up with your mental health counselor or the mental health clinic here at [facility]. Please follow up with Dermatology within a week. Use elidel or eucrisa to the affected areas of eczema twice a day as needed. If symptoms worsen, return to the emergency department. Prescriptions: Crisaborole [Eucrisa] 60 gm TP BID PRN #1 oint...g. PRN Reason: Rash Pimecrolimus 30 gm TP BID PRN #1 cream..g. PRN Reason: Rash Referrals: Mart Bean MD [Staff Provider] - [facility] up with [facility]] - Follow up with primary Yusuf Parker MD [Staff Provider] - Follow up with primary Jimbo Pineda [Non-Staff] - Follow up with primary Forms: [employer] (Lao)
[2018-09-30 14:56] LABS: BASO # 0.02 K/mm3 (0.0-2.0); BASO % 0.5 % (0.0-3.0); EOS # 0.1 (0.0-0.7); EOS % 1.8 % (1.5-5.0); LYMPH # 1.2 (1.2-3.4); LYMPH % 31.6 % (22.0-35.0); MEAN CELL VOLUME 94.1 fl (80.0-105.0); MEAN CORPUSCULAR HEMOGLOBIN 30.8 pg (25.0-35.0); MEAN CORPUSCULAR HGB CONC 32.8 g/dl (31.0-37.0); MEAN PLATELET VOLUME 9.7 fl (7.0-11.0); MONO # 0.3 (0.1-0.6); MONO % 8.4 % (1.0-6.0); RBC 3.89 10^6/uL (3.5-6.1); RED CELL DISTRIBUTION WIDTH 13.2 % (11.5-14.5); WHITE BLOOD COUNT 3.8 10^3/uL (4.5-11.0)
[2018-09-30 15:07] LABS: ALB/GLOB RATIO 1.4 (1.1-1.8); ALBUMIN 3.7 g/dL (3.0-4.8); ALT/SGPT 13 U/L (7-56); AST/SGOT 19 U/L (14-36); BLOOD UREA NITROGEN 9 mg/dL (7-21); CALCIUM 8.9 mg/dL (8.4-10.5); GFR NON-AFRICAN AMERICAN > 60
--- NOTE | 2018-09-30 15:19 | CARD ---
APPROVED REPORT Date of service: 09/30/2018 EKG Measurement Heart [id number] <Conclusion> Sinus bradycardia Otherwise normal ECG
[2018-09-30 15:23] LABS: FREE T4 0.93 ng/dL (0.78-2.19)
[2018-09-30 18:50] VITALS: BP 109/70; PULSE 71; RESP 17; TEMP 98.7; O2SAT 100
== END 2018-09-30 18:57 | disposition home or self-care (01) ==
LOC: ED 12:53
DX: F32.9 Major depressive disorder, single episode, unspecified (principal); G47.10 Hypersomnia, unspecified
CPT/HCPCS: 80053; 83735; 84439; 84443; 85025; 90791; 93005; 99285; G0480